=== PATIENT | female | born 1990 | race Asian ===

== ENCOUNTER 2016-08-05 12:24 | Emergency (ER) | payer SELFPAY ==
[~2016-08-05] VITALS: Ht 160 cm; Wt 62.6 kg
[2016-08-05 13:00] LABS: KETONES,URINE NEGATIVE (NEGATIVE); LEUKOCYTE ESTERASE ,URINE 1+ (NEGATIVE); NITRITE,URINE NEGATIVE (NEGATIVE); PH,URINE 6 (4.5-8.0); PROTEIN,URINE 1+ (NEGATIVE); UROBILINOGEN,URINE 1 MG/DL (0.0-1.0)
[2016-08-05 13:02] LABS: APPEARANCE,URINE SLIGHTLY CLOUDY
[2016-08-05 13:05] LABS: BACTERIA,URINE MODERATE /HPF; ICTOTEST NEGATIVE; SQUAMOUS EPITHELIAL CELL,UR MODERATE /LPF (NONE/OCC)
--- NOTE | 2016-08-05 13:33 | Emergency Room Report ---
History of Present Illness General Chief Complaint: Vaginal Source: Patient Present Illness HPI 25-year-old female presents emergency department complaining of yellow vaginal discharge with fishy odor times one week. Patient states she to [facility] over-[facility]- [facility] with no relief. Patient also reports some residual spotting from her period from last week. Patient reports dark red blood. Patient denies recent unprotected intercourse. Patient denies nausea vomiting fevers chills abdominal pain, dysuria, frequency, external vaginal lesions, rashes, . Denies CP, Palpitations, LOC, AMS, dizziness, Changes in Vision, Sensation, paresthesias, or a sudden severe headache. Allergies: Coded Allergies: AMOXICILLIN (Verified Allergy, Unknown, 08/05/16) Patient History Past Medical History: see triage record Past Surgical History: none Pertinent Family History: none Last Menstrual Period: 07/24/2016 Now: No Immunizations: UTD Reviewed Nursing Documentation: PMH: Agreed, PSxH: Agreed Nursing Documentation-PMH Past Medical History: No History, Except For Hx Asthma: Yes Review of Systems All Other Systems: negative except mentioned in HPI Physical Exam Vital Signs Date Time Temp Pulse Resp B/P Pulse Ox O2 Delivery O2 Flow Rate FiO2 08/05/16 12:38 98.2 84 16 113/68 99 Room Air Sp02 EP Interpretation: reviewed, normal General Appearance: no apparent distress, alert, GCS 15, non-toxic Head: normocephalic, atraumatic Eyes: bilateral eye PERRL, bilateral eye normal inspection ENT: hearing grossly normal, normal pharynx, no angioedema, normal voice Neck: full range of motion, supple/symm/no masses Respiratory: lungs clear, normal breath sounds, speaking full sentences Cardiovascular #1: regular rate, rhythm, no edema Gastrointestinal: normal bowel sounds, non tender, soft, no guarding, no rebound Rectal: deferred Genitourinary: normal inspection, no CVA tenderness, adnexa normal, cervix normal, os closed, other - yellow-white vaginal d/c scant dark red blood, negative CMT, Musculoskeletal: back normal, gait/station normal, normal range of motion, non- tender Neurologic: alert, oriented x3, responsive, motor strength/tone normal, sensory intact, speech normal Psychiatric: judgement/insight normal, memory normal, mood/affect normal Skin: normal color, no rash, warm/dry, well hydrated Lymphatic: no adenopathy Medical Decision Making PA Attestation Dr. Damon is my supervising Physician whom patient management has been discussed with. Diagnostic Impression: Primary Impression: Urinary tract infection Qualified Codes: N30.01 - Acute cystitis with hematuria Additional Impression: Bacterial vaginosis ER Course 25-year-old female presents emergency department complaining of yellow vaginal discharge with fishy odor times one week. Patient states she to [facility] over-[facility]- counter with no relief. Patient also reports some residual spotting from her period from last week. Patient reports dark red blood. Patient denies recent unprotected intercourse. Patient denies nausea vomiting fevers chills abdominal pain, dysuria, frequency, external vaginal lesions, rashes, . Ddx considered but are not limited to UTi , STI, G & C, trichomonas, Vaginitis , cervicitis, BV. Vital signs: are WNL, pt. is afebrile H&PE are most consistent with BV ORDERS: - UA: moderate bacteria and wbc's -Urine HCG: Negative -WET MOUNT: bacteria, no trich, epithelial cells. - no comment on clue cells, will treat clinically due to strong fish-like odor of d/c -Urine G & C culture: Pending ED INTERVENTIONS: - DISCHARGE: At this time pt. is stable for d/c to home. Will provide printed patient care instructions, and any necessary prescriptions. Care plan and follow up instructions have been discussed with the patient prior to discharge. Labs Test 08/05/16 12:55 Urine Color [place] Urine Appearance Slightly cloudy Urine pH 6 (4.5-8.0) Urine Specific [place] 1.025 (1.005-1.035) Urine Protein 1+ (NEGATIVE) Urine Glucose (UA) Negative (NEGATIVE) Urine Ketones Negative (NEGATIVE) Urine Occult Blood 4+ (NEGATIVE) Urine Nitrite Negative (NEGATIVE) Urine Bilirubin Negative (NEGATIVE) Urine Ictotest Negative Urine Urobilinogen 1 MG/DL (0.0-1.0) Urine Leukocyte Esterase 1+ (NEGATIVE) Urine RBC 10-15 /HPF (0 - 2) Urine WBC 5-10 /HPF (0 - 2) Urine Squamous Epithelial Cells Moderate /LPF (NONE/OCC) Urine Bacteria Moderate /HPF (NONE) Urine HCG, Qualitative Negative Last Vital Signs Date Time Temp Pulse Resp B/P Pulse Ox O2 Delivery O2 Flow Rate FiO2 08/05/16 12:38 98.2 84 16 113/68 99 Room Air Disposition: HOME, SELF-CARE Condition: Stable Scripts Nitrofurantoin Monohyd/M-Cryst* (MACROBID 100 MG*) 100 Mg Capsule 100 MG ORAL EVERY 12 HOURS for 5 Days, #10 CAP Prov: Nkechi Grewal 08/05/16 Metronidazole* (FLAGYL*) 500 Mg Tablet 500 MG ORAL BID for 7 Days, #14 TAB 0 Refills Prov: Nkechi Grewal 08/05/16 Referrals: NOT CHOSEN [facility]/,REFERRING (PCP) Patient Instructions: Urinary Tract Infection, [id number] Additional Instructions: Take medications as directed. Follow up with PCP in 3-5 days Return sooner to ED if new symptoms occur, or current symptoms become worse. Do not drink alcohol while taking FLAGYL/METRONIDAZOLE as this will cause a moderate skin reaction. - Please note that this Emergency Department Report was dictated using [employer] machine tender technology software, occasionally this can lead to erroneous entry secondary to interpretation by the dictation equipment. Nkechi Grewal Aug 05, 2016 13:33
[2016-08-05] MEDS ORDERED: METRONIDAZOLE500 MG ORAL (14:01)
[2016-08-05] MEDS ORDERED: NITROFURANTOIN100 M2 ORAL (14:01)
[2016-08-05 14:10] VITALS: BP 123/87
== END 2016-08-05 14:15 | disposition home or self-care (01) ==
LOC: EMR 13:12
DX: N39.0 Urinary tract infection, site not specified (principal); N76.0 Acute vaginitis; Z88.1 Allergy status to other antibiotic agents; J45.909 Unspecified asthma, uncomplicated
CPT/HCPCS: 81003; 81025; 87086; 87210; 87491; 87590; 99284

== ENCOUNTER 2018-01-27 18:52 | Emergency (ER) | payer SELFPAY ==
[~2018-01-27] VITALS: Ht 160 cm; Wt 68.0 kg
[~2018-01-27 18:52] MED LIST: METRONIDAZOLE500 MG ORAL; NITROFURANTOIN100 M2 ORAL
[2018-01-27 19:10] VITALS: BP 117/79
[2018-01-27 20:02] LABS: APPEARANCE,URINE CLEAR; BILIRUBIN, URINE NEGATIVE (NEGATIVE); COLOR,URINE PALE YELLOW; GLUCOSE, URINE (UA) NEGATIVE (NEGATIVE); KETONES,URINE NEGATIVE (NEGATIVE); LEUKOCYTE ESTERASE ,URINE 1+ (NEGATIVE); NITRITE,URINE NEGATIVE (NEGATIVE); PH,URINE 8 (4.5-8.0); PROTEIN,URINE NEGATIVE (NEGATIVE); UROBILINOGEN,URINE 1 MG/DL (0.0-1.0)
--- NOTE | 2018-01-27 20:07 | Emergency Room Report ---
History of Present Illness General Chief Complaint: Female Urogenital Problems Source: Patient Present Illness HPI 27-year-old female presents to the emergency department complaining of out of 10 in severity malodorous vaginal discharge off and on since September. Patient denies fevers or chills. Patient denies abnormal vaginal bleeding or current . Patient denies fevers or chills she reports some urinary frequency. Patient denies recent antibiotic use. Patient reports some unprotected intercourse with monogamous partner and states that she does not have suspicion for STDs at this time. Denies rashes, swollen tender lymph nodes, joint pain, nausea vomiting or external genital lesions. Allergies: Coded Allergies: AMOXICILLIN (Verified Allergy, Unknown, 08/05/16) Patient History Past Medical History: see triage record Past Surgical History: none Pertinent Family History: none Last Menstrual Period: 01/20/18 Now: No Reviewed Nursing Documentation: PMH: Agreed; PSxH: Agreed Nursing Documentation-PMH Hx Asthma: Yes Review of Systems All Other Systems: negative except mentioned in HPI Physical Exam Vital Signs Date Time Temp Pulse Resp B/P (MAP) Pulse Ox O2 Delivery O2 Flow Rate FiO2 01/27/18 19:00 99.0 91 16 119/80 99 Room Air 99.0 Sp02 EP Interpretation: reviewed, normal General Appearance: no apparent distress, alert, GCS 15, non-toxic Head: normocephalic, atraumatic Eyes: bilateral eye normal inspection, bilateral eye PERRL ENT: hearing grossly normal, normal voice Neck: full range of motion Respiratory: lungs clear, normal breath sounds, speaking full sentences Cardiovascular #1: regular rate, rhythm Gastrointestinal: normal bowel sounds, non tender, soft Genitourinary: normal inspection, no CVA tenderness, adnexa normal, ext genitalia/vag normal, other - cervix was noted to have abnormal appearance were several hypopigmented areas that were part of the epithelia. Patient also noted to have what looked like a small abrasion across the 9 o'clock position of the cervi,, some milky white vaginal d/c present in the vaginal vault, no CMT. Musculoskeletal: back normal, gait/station normal, normal range of motion, non- tender Neurologic: alert, oriented x3, responsive, motor strength/tone normal, sensory intact, speech normal, grossly normal Psychiatric: judgement/insight normal Skin: normal color, no rash, warm/dry, well hydrated Lymphatic: no adenopathy Medical Decision Making PA Attestation Dr. becerra is my supervising Physician whom patient management has been discussed with. Diagnostic Impression: Primary Impression: Bacterial vaginosis ER Course 27-year-old female presents to the emergency department complaining of out of 10 in severity malodorous vaginal discharge off and on since September. Patient denies fevers or chills. Patient denies abnormal vaginal bleeding or current . Patient denies fevers or chills she reports some urinary frequency. Patient denies recent antibiotic use. Patient reports some unprotected intercourse with monogamous partner and states that she does not have suspicion for STDs at this time. Denies rashes, swollen tender lymph nodes, joint pain, nausea vomiting or external genital lesions. Ddx considered but are not limited to UTi , Pyelo, STI, Stone, Cystitis, vaginal laceration, vaginitis. Vital signs: are WNL, pt. is afebrile H& PE are most consistent with: Vaginitis --Upon pelvic exam cervix was noted to have abnormal appearance were several hypopigmented areas that were part of the epithelia. Patient also noted to have what looked like a small abrasion across the 9 o'clock position of the cervix. Discussed with patient that I highly recommend [facility] follow-up with a Pap smear patient verbalizes her understanding and agreement she states that her previous Pap smears have been normal however she is due to have one. Denies familial history of cervical cancer denies night sweats or significant changes in weight. ORDERS: - UA labs are attached : unremarkable- Most indicative of contamination: presence of equal amounts of bacteria and squamous cells, no elevation in inflammatory markers, nitrite negative. - Wet Mount : few clue cells. ED INTERVENTIONS: -Pt. given instructions to follow up and have pap-smear due to abnormal appearance of cervix. D/w pt. that the appearance is suspicious for early stages of cervical cancer. Pt. reports she has not been told about an abnormal appearance in the past. d/w pt that OBGYN and oncology is not my specialty, however an abnormal appearance can be retention representative of malignancy and proper evaluation is required. DISCHARGE: At this time pt. is stable for d/c to home. Will provide printed patient care instructions, and any necessary prescriptions. Care plan and follow up instructions have been discussed with the patient prior to discharge. discussed with the patient prior to discharge. Labs Test 01/27/18 19:08 Urine Color Pale yellow Urine Appearance Clear Urine pH 8 (4.5-8.0) Urine Specific [place] 1.010 (1.005-1.035) Urine Protein Negative (NEGATIVE) Urine Glucose (UA) Negative (NEGATIVE) Urine Ketones Negative (NEGATIVE) Urine Blood Negative (NEGATIVE) Urine Nitrite Negative (NEGATIVE) Urine Bilirubin Negative (NEGATIVE) Urine Urobilinogen 1 MG/DL (0.0-1.0) Urine Leukocyte Esterase 1+ (NEGATIVE) Last Vital Signs Date Time Temp Pulse Resp B/P (MAP) Pulse Ox O2 Delivery O2 Flow Rate FiO2 01/27/18 19:10 99.1 78 16 117/79 99 Room Air 99.1 Disposition: HOME, SELF-CARE Condition: Stable Scripts Metronidazole* (FLAGYL*) 500 Mg Tablet 500 MG ORAL BID for 5 Days, #10 TAB 0 Refills Prov: Nkechi Grewal 01/27/18 Referrals: NOT CHOSEN [facility],REFERRING (PCP) Patient Instructions: Bacterial Vaginosis, [id number] Additional Instructions: Take medications as directed. ! Do not drink alcohol while taking Flagyl/Metronidazole as this will cause a skin reaction. Follow up with a Primary Care Provider in 3-5 days, even if your symptoms have resolved. --Please review list of primary care clinics, if you do not already have a primary care provider Follow up with OBGYN or PCP for PAP- Smear and to evaluate your abnormal cervical appearance Return sooner to ED if new symptoms occur, or current symptoms become worse. - Please note that this Emergency Department Report was dictated using [employer] tender technology software, occasionally this can lead to erroneous entry secondary to interpretation by the dictation equipment. Nkechi Grewal Jan 27, 2018 20:07
[2018-01-27] MEDS ORDERED: METRONIDAZOLE500 MG ORAL (20:09)
[2018-01-27 20:20] VITALS: BP 114/73
== END 2018-01-27 20:20 | disposition home or self-care (01) ==
LOC: EMR 19:14
DX: N76.0 Acute vaginitis (principal); B96.89 Other specified bacterial agents as the cause of diseases classified elsewhere; J45.909 Unspecified asthma, uncomplicated
CPT/HCPCS: 81003; 87210; 99283

== ENCOUNTER 2018-04-09 17:16 | Emergency (ER) | payer MEDICAID ==
[~2018-04-09] VITALS: Ht 160 cm; Wt 63.5 kg
[2018-04-09] MEDS ORDERED: NKM (17:23)
--- NOTE | 2018-04-09 17:57 | Emergency Room Report ---
History of Present Illness General Chief Complaint: Female Urogenital Problems Source: Patient Present Illness HPI 27-year-old female presents to the emergency department complaining of vaginal discharge with cramping sensations 5 days. Patient also states that she began having loose bowel movements one per day for the last 3 days. Patient denies nausea vomiting, blood in the stool or dark tarry stools, , suspicion for STI, urinary urgency, urinary frequency, hematuria or dysuria. She describes a milky discharge that has an odor to it. She denies bleeding, external genital lesions or rashes. The patient denies dyspareunia, or abdominal tenderness. Allergies: Coded Allergies: AMOXICILLIN (Verified Allergy, Unknown, 08/05/16) Patient History Past Medical History: see triage record Past Surgical History: none Pertinent Family History: none Last Menstrual Period: 03/24/18 Now: No Reviewed Nursing Documentation: PMH: Agreed; PSxH: Agreed Nursing Documentation-PMH Past Medical History: No History, Except For Hx Asthma: Yes Review of Systems All Other Systems: negative except mentioned in HPI Physical Exam Vital Signs Date Time Temp Pulse Resp B/P (MAP) Pulse Ox O2 Delivery O2 Flow Rate FiO2 04/09/18 17:18 98.4 100 17 126/76 99 Room Air Sp02 EP Interpretation: reviewed, normal General Appearance: no apparent distress, alert, GCS 15, non-toxic Head: normocephalic, atraumatic Eyes: bilateral eye normal inspection, bilateral eye PERRL ENT: hearing grossly normal, normal voice Neck: full range of motion Respiratory: lungs clear, normal breath sounds, speaking full sentences Cardiovascular #1: regular rate, rhythm Gastrointestinal: normal bowel sounds, non tender, soft, non-distended, no guarding Rectal: deferred Genitourinary: normal inspection, no CVA tenderness, adnexa normal, cervix normal, ext genitalia/vag normal, other - milky white d/c noted, no CMT Musculoskeletal: back normal, gait/station normal, normal range of motion, non- tender Neurologic: alert, oriented x3, responsive, motor strength/tone normal, sensory intact, speech normal, grossly normal Psychiatric: judgement/insight normal Skin: normal color, no rash, warm/dry, well hydrated Lymphatic: no adenopathy Medical Decision Making PA Attestation Dr. Contreras is my supervising Physician whom patient management has been discussed with. Diagnostic Impression: Primary Impression: Vaginitis Qualified Codes: N76.0 - Acute vaginitis ER Course 27-year-old female presents to the emergency department complaining of vaginal discharge with cramping sensations 5 days. Patient also states that she began having loose bowel movements one per day for the last 3 days. Patient denies nausea vomiting, blood in the stool or dark tarry stools, , suspicion for STI, urinary urgency, urinary frequency, hematuria or dysuria. She describes a milky discharge that has an odor to it. She denies bleeding, external genital lesions or rashes. The patient denies dyspareunia, or abdominal tenderness. Pt. presents to the ED c/o vaginal irritation/ discomfort, [ ] x [ ] day(s). Ddx considered but are not limited to UTi , Pyelo, STI, Stone, Cystitis, vaginal laceration, vaginitis. Vital signs: are WNL, pt. is afebrile H& PE are most consistent with: Vaginitis ORDERS: - UA labs are attached - unremarkable - Wet Mount : few WBC's -Hcg: Negative ED INTERVENTIONS: -Diflucan PO DISCHARGE: At this time pt. is stable for d/c to home. Will provide printed patient care instructions, and any necessary prescriptions. Care plan and follow up instructions have been discussed with the patient prior to discharge. discussed with the patient prior to discharge. Labs Test 04/09/18 17:23 Urine Color Yellow Urine Appearance Clear Urine pH 6 (4.5-8.0) Urine Specific [place] 1.020 (1.005-1.035) Urine Protein Negative (NEGATIVE) Urine Glucose (UA) Negative (NEGATIVE) Urine Ketones Negative (NEGATIVE) Urine Blood Negative (NEGATIVE) Urine Nitrite Negative (NEGATIVE) Urine Bilirubin Negative (NEGATIVE) Urine Urobilinogen 4 MG/DL (0.0-1.0) Urine Leukocyte Esterase 1+ (NEGATIVE) Urine RBC 0 /HPF (0 - 2) Urine WBC 2-4 /HPF (0 - 2) Urine Squamous Epithelial Cells Moderate /LPF (NONE/OCC) Urine Bacteria Few /HPF (NONE) Urine HCG, Qualitative Negative (NEGATIVE) Last Vital Signs Date Time Temp Pulse Resp B/P (MAP) Pulse Ox O2 Delivery O2 Flow Rate FiO2 04/09/18 17:18 98.4 100 17 126/76 99 Room Air Disposition: HOME, SELF-CARE Condition: Stable Scripts Fluconazole (FLUCONAZOLE) 100 Mg Tablet 100 MG ORAL DAILY, #3 TAB 0 Refills Prov: Nkechi Grewal 04/09/18 Patient Instructions: Vaginitis Additional Instructions: Take medications as directed. Follow up with a Primary Care Provider in 3-5 days, even if your symptoms have resolved. --Please review list of primary care clinics, if you do not already have a primary care provider Return sooner to ED if new symptoms occur, or current symptoms become worse. - Please note that this Emergency Department Report was dictated using [employer] professional bilingual technology software, occasionally this can lead to erroneous entry secondary to interpretation by the dictation equipment. Nkechi Grewal Apr 09, 2018 17:57
[2018-04-09 18:12] LABS: APPEARANCE,URINE CLEAR; BILIRUBIN, URINE NEGATIVE (NEGATIVE); GLUCOSE, URINE (UA) NEGATIVE (NEGATIVE); KETONES,URINE NEGATIVE (NEGATIVE); LEUKOCYTE ESTERASE ,URINE 1+ (NEGATIVE); NITRITE,URINE NEGATIVE (NEGATIVE); PH,URINE 6 (4.5-8.0); PROTEIN,URINE NEGATIVE (NEGATIVE); UROBILINOGEN,URINE 4 MG/DL (0.0-1.0)
[2018-04-09 18:22] LABS: COLOR,URINE YELLOW
[2018-04-09 18:55] VITALS: BP 122/78
[2018-04-09] MEDS ORDERED: FLUCONAZOLE100 MG ORAL (18:55)
[2018-04-09 19:02] VITALS: BP 122/78
== END 2018-04-09 19:02 | disposition home or self-care (01) ==
LOC: EMR 17:40
DX: N76.0 Acute vaginitis (principal); Z88.0 Allergy status to penicillin
CPT/HCPCS: 81003; 81025; 87210; 99283

== ENCOUNTER 2018-05-13 11:10 | Emergency (ER) | payer MEDICAID ==
[~2018-05-13] VITALS: Ht 160 cm; Wt 63.5 kg
[~2018-05-13 11:10] MED LIST changes: +FLUCONAZOLE100 MG ORAL; +NKM
[2018-05-13 11:14] VITALS: BP 138/84
--- NOTE | 2018-05-13 11:24 | NUR ---
ED Nurse Note: ambulated in to ER due to sorethroat and chest discomfort since 05/10/18 after having panic attack.
--- NOTE | 2018-05-13 12:31 | Emergency Room Report ---
History of Present Illness General Chief Complaint: Sore Throat Source: Patient Present Illness HPI 27-year-old female patient presents the ER with multiple complaints. Patient is reporting having a panic attack several days ago, states after the panic attack she began to have chest pain symptoms for the past several days, states pain symptoms have improved since that time. Reports pain is reproducible. Denies history of SD. Reports history of asthma, requesting refill of medication. Denies shortness of breath symptoms at this time. Speaking in clear full sentences. Also complaining of bacterial vaginosis. Reports foul- smelling odor. Denies materia, dysuria, vaginal discharge. Denies recent sexual activity without protection. Denies fever, abdominal pain, vomiting. Also reports sore throat. Reports symptoms been present for the past few days. States not taking medication for relief of symptoms. Denies other aggravating or relieving factors. Allergies: Coded Allergies: AMOXICILLIN (Verified Allergy, Unknown, 05/13/18) Patient History Past Medical History: see triage record Last Menstrual Period: currently on Reviewed Nursing Documentation: PMH: Agreed; PSxH: Agreed Nursing Documentation-PMH Past Medical History: No History, Except For Hx Asthma: Yes Review of Systems All Other Systems: negative except mentioned in HPI Physical Exam Vital Signs Date Time Temp Pulse Resp B/P (MAP) Pulse Ox O2 Delivery O2 Flow Rate FiO2 05/13/18 11:14 98.6 91 16 138/84 99 Room Air Sp02 EP Interpretation: reviewed, normal General Appearance: well appearing, no apparent distress, alert, GCS 15, non- toxic Head: normocephalic, atraumatic Eyes: bilateral eye normal inspection, bilateral eye PERRL ENT: hearing grossly normal, normal pharynx, no angioedema, normal voice, TMs + canals normal, uvula midline, moist mucus membranes, other - uvula midline Neck: full range of motion, no bony tend Respiratory: lungs clear, normal breath sounds, no rhonchi, no respiratory distress, no accessory muscle use, no wheezing, speaking full sentences, other - Chest tender to palpation, no bony deformity, no flail chest Cardiovascular #1: regular rate, rhythm, no edema Gastrointestinal: non tender, soft, no mass, non-distended, no guarding, no rebound Genitourinary: no CVA tenderness, deferred Musculoskeletal: back normal, digits/nails normal, gait/station normal, normal range of motion, non-tender Neurologic: alert, oriented x3, responsive, motor strength/tone normal, sensory intact Psychiatric: mood/affect normal Skin: no rash Medical Decision Making PA Attestation Dr. Khan is my supervising Physician whom patient management has been discussed with. Diagnostic Impression: Primary Impression: Nonspecific chest pain Additional Impressions: Bacterial vaginosis Sore throat ER Course Pt. presents to the ED c/o chest pain status post panic attack 4 days ago, states pain is resolved, sore throat, bacterial vaginosis concern. Ddx considered but are not limited to SD, costochondritis, muscular skeletal pain, pneumothorax, aortic dissection, BV, pharyngitis, tonsillitis, UTI. Low suspicion for peritonsillar abscess, no neck stiffness, no hot potato voice , no stridor. Vital signs: are WNL, pt. is afebrile ER COURSE: Patient reports foul-smelling odor with urination, denies dysuria or hematuria, low suspicion for UTI we will not order UA, will treat clinically for BV. We will treat with Flagyl, advised patient not to drink alcohol taking medication. On PE, chest is TTP; chest pain likely musculoskeletal in nature secondary to cough, does not require cardiac workup at this time. Patient instructed to take NSAIDs as needed for pain symptoms. EKG shows no ST elevation or A. fib. Chest X-ray negative. Chest xray and EKG unremarkable, patient denies acute complaints at this time, low suspicion for cardiac etiology of symptoms at this time. will provide refill of inhaler, lungs clear to auscultation,no wheezes, rhocni or rales, does not require breathing treatment at this time. followup with PCP for further treatment and referral to cardiology. Salt water gargles and Tylenol for sore throat. ER precautions given. DISCHARGE: At this time pt is stable for d/c to home. Patient is resting comfortably, in no acute distress, nontoxic appearing, talking without difficulty. Patient to take medications as instructed Will provide with patient care instructions and any necessary prescriptions. Care plan and follow-up instructions provided. Patient instructed to follow-up with primary care provider in 3 - 5 days. Patient questions asked and answered. Patient reports understanding and agreement to treatment plan. ER precautions given. Patient instructed to return to ER immediately for any new or worsening of symptoms including but not limited to increasing SOB, persistent fever, chest pain, intractable vomiting. - Please note that this Emergency Department Report was dictated using [employer]eleratedchild [employer] adolescent psychiatrist technology software, occasionally this can lead to erroneous entry secondary to interpretation by the dictation equipment. EKG Diagnostic Results Rate: normal Rhythm: NSR ST Segments: no acute changes ASA given to the pt in ED: No PA Scribe Marycarmen Florence PA-C Rhythm Strip Diag. Results EP Interpretation: yes Rate: 94 Rhythm: NSR, no PVC's, no ectopy PA Scribe Text Pardeep Florence PA-C Chest X-Ray Diagnostic Results Chest X-Ray Diagnostic Results : Chest X-Ray Ordered: Yes # of Views/Limited/Complete: 1 View Indication: Chest Pain EP Interpretation: Yes PA Xray: Interpretation reviewed, by supervising MD, and agrees with findings. Interpretation: no consolidation, no effusion, no pneumothorax, no acute cardiopulmonary disease Impression: No acute disease FAIZAN Scribe Marycarmen Florence PA-C Last Vital Signs Date Time Temp Pulse Resp B/P (MAP) Pulse Ox O2 Delivery O2 Flow Rate FiO2 05/13/18 11:14 98.6 16 138/84 99 Room Air 05/13/18 11:14 91 Disposition: HOME, SELF-CARE Condition: Stable Scripts Metronidazole* (FLAGYL*) 500 Mg Tablet 500 MG ORAL BID, #14 TAB Prov: Italo Florence 05/13/18 Albuterol Sulfate* (ALBUTEROL SULFATE MDI*) 8.5 Gm Hfa.aer.ad 2 PUFF INH Q6H, #1 INH 0 Refills Prov: Italo Florence 05/13/18 Ibuprofen* (MOTRIN*) 600 Mg Tablet 600 MG ORAL Q8H PRN for For Pain, #30 TAB 0 Refills Prov: Italo Florence 05/13/18 Referrals: NOT CHOSEN IPA/,REFERRING (PCP) Patient Instructions: Bacterial Vaginosis, [id number], Costochondritis, Easy- to-Read, Nonspecific Chest Pain, [id number], Sore Throat Additional Instructions: Followup with primary care provider in 3 -5 days. Discuss referral to assurance associate for cardiac stress testing and further workup as needed. Drink plenty fluids. Take medications as directed. Do not drink alcohol while taking Flagyl. Patient questions asked and answered. ER precautions given, patient instructed to return to ER immediately for any new or worsening of symptoms. Italo Florence May 13, 2018 12:31
[2018-05-13] MEDS ORDERED: ALBUTEROL SULF8.5 GM INH (12:43)
[2018-05-13] MEDS ORDERED: FLAGYL500 MG ORAL (12:43)
[2018-05-13] MEDS ORDERED: IBUPROFEN600 MG ORAL (12:43)
[2018-05-13 12:47] VITALS: BP 135/70
--- NOTE | 2018-05-13 12:47 | NUR ---
ED Nurse Note: Pt cleared by HealthCare provider for discharge. ACI/prescription given and explained to pt and verbalized understanding of teachings provided. All medical devices such as ID band removed. Pt is AAO x4, ambulatory and left with all personal belongings.
--- NOTE | 2018-05-13 13:05 | Diagnostic Imaging Report ---
Indication: Dyspnea Comparison: None A single view chest radiograph was obtained. Findings: Cardiomediastinal appearance is within normal limits for age. The lungs are clear. Pulmonary vascularity is appropriate. The diaphragmatic contour is smooth and costophrenic angles are sharp. No pleural effusions are identified. The bones are unremarkable. Impression: No acute findings
--- NOTE | 2018-05-14 13:46 | Cardiology Report ---
APPROVED REPORT EKG Measurement Heart [id number] Normal sinus rhythm with sinus arrhythmia Normal ECG
== END 2018-05-13 12:47 | disposition home or self-care (01) ==
LOC: EMR 11:45
DX: R07.9 Chest pain, unspecified (principal); N76.0 Acute vaginitis; B96.89 Other specified bacterial agents as the cause of diseases classified elsewhere; J02.9 Acute pharyngitis, unspecified; J45.909 Unspecified asthma, uncomplicated; Z88.0 Allergy status to penicillin
CPT/HCPCS: 71045; 93005; 99283

== ENCOUNTER 2018-05-22 19:37 | Emergency (ER) | payer MEDICAID ==
[~2018-05-22] VITALS: Ht 160 cm; Wt 63.5 kg
[~2018-05-22 19:37] MED LIST changes: +ALBUTEROL SULF8.5 GM INH; +FLAGYL500 MG ORAL; +IBUPROFEN600 MG ORAL
[2018-05-22 20:21] VITALS: BP 139/95
--- NOTE | 2018-05-22 20:25 | NUR ---
ED Nurse Note: Pt is having panic attack since this morning. Pt states she was drinking all night long last night. Pt admit she use Marijuana at 2pm. upon physical exam, pt vital signs are within define limits. pt is alert and oritented times 4. pt is able to ambulate with steady gait.
--- NOTE | 2018-05-22 20:25 | Emergency Room Report ---
History of Present Illness General Chief Complaint: General Complaint Source: Patient Present Illness HPI 27-year-old female presenting anxiety. Says that she had 3 panic attacks a day. Says that she is stressed. She says that it has happened before, presenting with palpitations as well as chest tightness. It resolved upon coming to the emergency room but says that she still feels tingling in her bilateral fingers. She does say that she smokes marijuana for pain control. Allergies: Coded Allergies: AMOXICILLIN (Verified Allergy, Unknown, 05/13/18) Patient History Past Medical History: see triage record Past Surgical History: none Pertinent Family History: none Reviewed Nursing Documentation: PMH: Agreed; PSxH: Agreed Nursing Documentation-PMH Hx Asthma: Yes History Of Psychiatric Problem: Yes - Anxiety, Panic attack Review of Systems All Other Systems: negative except mentioned in HPI Physical Exam Vital Signs Date Time Temp Pulse Resp B/P (MAP) Pulse Ox O2 Delivery O2 Flow Rate FiO2 05/22/18 20:07 98.2 94 18 143/96 95 Room Air Sp02 EP Interpretation: reviewed, normal General Appearance: alert, GCS 15, non-toxic, mild distress Head: normocephalic, atraumatic Eyes: bilateral eye normal inspection, bilateral eye PERRL, bilateral eye EOMI ENT: normal ENT inspection, normal pharynx, normal voice, moist mucus membranes Neck: normal inspection, full range of motion, supple Respiratory: normal inspection, lungs clear, normal breath sounds, no respiratory distress, no retraction, no wheezing, speaking full sentences, chest symmetrical Cardiovascular #1: normal inspection, regular rate, rhythm, normal capillary refill Cardiovascular #2: 2+ radial (R), 2+ radial (L) Gastrointestinal: normal inspection, non tender, soft, non-distended, no guarding Musculoskeletal: normal inspection, back normal, normal range of motion, non- tender Neurologic: normal inspection, alert, oriented x3, responsive, motor strength/ tone normal, sensory intact, normal gait, speech normal Psychiatric: anxious Skin: normal inspection, normal color, no rash, warm/dry, well hydrated, normal turgor Medical Decision Making Diagnostic Impression: Primary Impression: Anxiety ER Course 27-year-old female presenting with anxiety DDX: Anxiety versus also induced with drug use/marijuana Plan: Ativan by mouth ER course: Patient has remained stable during ED stay. Feeling much better. No SI no HI. Disposition: Patient is to be discharged to home. She is told to seek counseling/mental health services. Also follow-up with PCP Please note that this Emergency Department Report was dictated using [employer] fabricator welder technology software, occasionally this can lead to erroneous entry secondary to interpretation by the dictation equipment Last Vital Signs Date Time Temp Pulse Resp B/P (MAP) Pulse Ox O2 Delivery O2 Flow Rate FiO2 05/22/18 20:07 98.2 94 18 143/96 95 Room Air Disposition: HOME, SELF-CARE Condition: Stable Falguni Aguillon M.D. May 22, 2018 20:25
[2018-05-22] MEDS ORDERED: LORazepam 1mg tab ORAL ONE (20:30)
[2018-05-22 21:10] VITALS: BP 130/96
--- NOTE | 2018-05-22 21:11 | NUR ---
ED Nurse Note: Pt cleared by Health Care Provider for discharge. DC instructions/prescriptions given and explained to pt and verbalized understanding of teachings. All medical devices such as ID band removed. Pt AAO x4, ambulatory and left with all personal belongings. pt is instructed to follow up with primary MD as soon as possible. pt is insturcted to return and seek medical attention if reoccurance of symptoms. pt has left with all DC notes and has been able to teach back all instructions.
== END 2018-05-22 21:20 | disposition home or self-care (01) ==
LOC: EMR 20:48
DX: F41.0 Panic disorder [episodic paroxysmal anxiety] (principal); F12.90 Cannabis use, unspecified, uncomplicated; Z88.1 Allergy status to other antibiotic agents; F17.200 Nicotine dependence, unspecified, uncomplicated; J45.909 Unspecified asthma, uncomplicated
CPT/HCPCS: 99282

== ENCOUNTER 2018-06-21 15:27 | Emergency (ER) | payer MEDICAID, OTHER ==
[~2018-06-21] VITALS: Ht 160 cm; Wt 61.2 kg
--- NOTE | 2018-06-21 15:46 | NUR ---
ED Nurse Note: PT WALKED IN TO ER TODAY FROM HOME. AOX4. PT C/O PERSISTENT, NONPRODUCTIVE COUGH X 2 WEEKS. PT DENIES FEVER, NAUSEA, OR VOMITING. NO SIGNS OF RESPIRATORY DISTRESS OR RETRACTIONS NOTED. RR16 @ 100% O2 SATURATION ON RA. LUNG SOUNDS CLEAR IN ALL LOBES.
[2018-06-21 15:47] VITALS: BP 126/80
--- NOTE | 2018-06-21 15:55 | NUR ---
ED Nurse Note: XRAY AT BEDSIDE
--- NOTE | 2018-06-21 16:01 | Emergency Room Report ---
History of Present Illness General Chief Complaint: Upper Respiratory Illness Source: Patient Present Illness HPI Patient presents emergency department today complaining cough congestion for the last 2 weeks. Patient states that she has sinus tenderness in a sinus headache. It did improve after using some Benadryl. She continues have a cough however. Denies any sputum production. Denies any fever or chills chest pain shortness of breath. Denies any leg pain leg swelling. Patient has a history anxiety and feels very anxious about this. Patient is requesting a chest x-ray.No other modifying factors. No other associated signs and symptoms. No other complaints were noted. Allergies: Coded Allergies: AMOXICILLIN (Verified Allergy, Unknown, 05/13/18) Patient History Past Medical History: asthma, psych hx - Anxiety Past Surgical History: none Pertinent Family History: none Social History: Reports: alcohol use, drug use - Marijuana use; Denies: smoking Last Menstrual Period: 06/11/2018 Reviewed Nursing Documentation: PMH: Agreed; PSxH: Agreed Nursing Documentation-PMH Past Medical History: No History, Except For Hx Asthma: Yes Review of Systems All Other Systems: negative except mentioned in HPI Physical Exam Vital Signs Date Time Temp Pulse Resp B/P (MAP) Pulse Ox O2 Delivery O2 Flow Rate FiO2 06/21/18 15:39 98.1 84 16 128/85 99 Room Air Sp02 EP Interpretation: reviewed, normal General Appearance: normal inspection, well appearing, no apparent distress, alert Head: atraumatic Eyes: bilateral eye normal inspection ENT: normal ENT inspection, hearing grossly normal, normal voice Neck: normal inspection, full range of motion, supple, no bony tend Respiratory: normal inspection, lungs clear, normal breath sounds, no respiratory distress, no retraction, no wheezing Cardiovascular #1: regular rate, rhythm, no edema Gastrointestinal: normal inspection, normal bowel sounds, non tender, soft, no guarding, no hernia Genitourinary: no CVA tenderness Musculoskeletal: normal inspection, back normal, normal range of motion Neurologic: normal inspection, alert, responsive, speech normal Psychiatric: normal inspection, judgement/insight normal, mood/affect normal Skin: normal inspection, normal color, no rash Medical Decision Making Diagnostic Impression: Primary Impression: Cough Additional Impression: Sinusitis ER Course Patient present to the Emergency Department today complaining of cough and congestion. Differential considerations include pneumonia bronchitis, asthma, COPD just to name a few.Patient exam is fairly benign. Chest x-ray is normal. Symptoms could be secondary to either bronchitis or sinusitis. Patient has had sinus pain and sinus drainage for 2 weeks. I felt that was reasonable start antibiotics as patient could have infectious sinusitis. We'll provide prescription for Zithromax as patient is allergic to amoxicillin.. Patient was also given the inhaler.Patient is advised to follow up with primary doctor in 2- 3 days and return the emergency room for any worsening symptoms and as needed. Chest X-Ray Diagnostic Results Chest X-Ray Diagnostic Results : Chest X-Ray Ordered: Yes # of Views/Limited/Complete: 1 View Indication: Shortness of Breath EP Interpretation: No Impression: No acute disease Last Vital Signs Date Time Temp Pulse Resp B/P (MAP) Pulse Ox O2 Delivery O2 Flow Rate FiO2 06/21/18 15:47 80 16 Room Air 06/21/18 15:47 98.4 126/80 100 Status: improved Disposition: HOME, SELF-CARE Condition: Stable Scripts Azithromycin* (ZITHROMAX*) 250 Mg Tablet 250 MG ORAL DAILY, #6 TAB 0 Refills Take two tables once daily for 1 day, then one tablet once daily for 4 days. Prov: Enrique Cortes MD 06/21/18 Albuterol Sulfate* (ALBUTEROL SULFATE MDI*) 8.5 Gm Hfa.aer.ad 2 PUFF INH Q4H PRN for cough/wheezing, #1 EA 0 Refills Prov: Enrique Cortes MD 06/21/18 Enrique Cortes MD Jun 21, 2018 16:01
--- NOTE | 2018-06-21 16:06 | Diagnostic Imaging Report ---
Indication: Cough Technique: One view of the chest Comparison: 05/13/2018 Findings: Lungs and pleural spaces are clear. Heart size is normal. No significant interim change Impression: No acute process
[2018-06-21] MEDS ORDERED: ALBUTEROL SULF8.5 GM INH (16:18)
[2018-06-21] MEDS ORDERED: ZITHROMAX250 MG ORAL (16:18)
--- NOTE | 2018-06-21 16:25 | NUR ---
ED Nurse Note: PT SITTING PEACEFULLY IN BED IN NAD. AOX4. PRESCRIPTIONS AND DISCHARGE PAPERWORK EXPLAINED TO PT. PT VERBALIZES UNDERSTANDING AND ALL QUESTIONS ANSWERED. PRESCRIPTIONS AND DISCHARGE PAPERWORK GIVEN TO PT AND ID WRISTBAND REMOVED. PT WALKED OUT OF ER WITH STEADY GAIT AND ALL BELONGINGS.
[2018-06-21 16:40] VITALS: BP 124/76
== END 2018-06-21 16:25 | disposition home or self-care (01) ==
LOC: EMR 16:00
DX: R05 Cough (principal); J32.9 Chronic sinusitis, unspecified; J45.909 Unspecified asthma, uncomplicated; Z88.0 Allergy status to penicillin
CPT/HCPCS: 71045; 99283

== ENCOUNTER 2018-07-22 11:02 | Emergency (ER) | payer OTHER ==
[~2018-07-22] VITALS: Ht 160 cm; Wt 61.2 kg
[~2018-07-22 11:02] MED LIST changes: +ZITHROMAX250 MG ORAL
[2018-07-22 11:10] VITALS: BP 131/90
--- NOTE | 2018-07-22 11:12 | NUR ---
ED Nurse Note: pt walked in to ED due to painful cough, chest congestion, and runny nose for 2 days. no fever or chills reported. wheezing audiable. maintained >94% of pulse oximetry in RA. respirations even and non-labored noted. AAO x4. skin warm to touch. no open wound noted. will wait for the further order.
--- NOTE | 2018-07-22 12:02 | Diagnostic Imaging Report ---
Indication: Cough Technique: One view of the chest Comparison: 06/21/2018 Findings: Lungs and pleural spaces are clear. Heart size is normal. No significant interim change Impression: No acute process
[2018-07-22] MEDS ORDERED: PROMETHAZINE-C118 M1 ORAL (12:07)
[2018-07-22] MEDS ORDERED: ZITHROMAX250 MG ORAL (12:07)
--- NOTE | 2018-07-22 12:15 | NUR ---
ER DISCHARGE NOTE: Patient is cleared to be discharged per ERMD Dr Cortes, pt is aox4, on room air, with stable vital signs. pt was given dc and prescription instructions, pt was able to verbalize understanding, pt id band removed without complications. pt is able to ambulate with steady gait. pt took all belongings.
[2018-07-22 12:16] VITALS: BP 130/87
--- NOTE | 2018-07-22 12:32 | Emergency Room Report ---
History of Present Illness General Chief Complaint: Upper Respiratory Illness Source: Patient Present Illness HPI Patient presents emergency department today complaint cough congestion and sore throat. Patient states symptoms haven't gone for couple days. Patient complains of some occasional shortness breath but she does have an inhaler at home. State that is helping a little bit. Patient denies any fever nausea vomiting or chills. Symptoms noted to be moderate.No other modifying factors. No other associated signs and symptoms. No other complaints were noted. Allergies: Coded Allergies: AMOXICILLIN (Verified Allergy, Unknown, 05/13/18) Patient History Past Medical History: asthma Past Surgical History: none Pertinent Family History: none Social History: Denies: smoking, alcohol use, drug use Last Menstrual Period: 07/08/18 Reviewed Nursing Documentation: PMH: Agreed; PSxH: Agreed Nursing Documentation-PMH Past Medical History: No History, Except For Hx Asthma: Yes Review of Systems All Other Systems: negative except mentioned in HPI Physical Exam Vital Signs Date Time Temp Pulse Resp B/P (MAP) Pulse Ox O2 Delivery O2 Flow Rate FiO2 07/22/18 11:05 99.1 90 18 131/90 98 Room Air Sp02 EP Interpretation: reviewed, normal General Appearance: normal inspection, well appearing, no apparent distress, alert Head: atraumatic Eyes: bilateral eye normal inspection ENT: normal ENT inspection, hearing grossly normal, normal voice Neck: normal inspection, full range of motion, supple, no bony tend Respiratory: normal inspection, lungs clear, normal breath sounds, no respiratory distress, no retraction, no wheezing Cardiovascular #1: regular rate, rhythm, no edema Gastrointestinal: normal inspection, normal bowel sounds, non tender, soft, no guarding, no hernia Genitourinary: no CVA tenderness Musculoskeletal: normal inspection, back normal, normal range of motion Neurologic: normal inspection, alert, responsive, speech normal Psychiatric: normal inspection, judgement/insight normal, mood/affect normal Skin: normal inspection, normal color, no rash Medical Decision Making Diagnostic Impression: Primary Impression: Cough ER Course Patient presents emergency department today complaint cough congestion. Difficult considerations include pneumonia, bronchitis, asthma, allergic reaction, seasonal allergies just to name a few. Patient's exam is fairly benign but given the cough I felt x-rays was indicated. X-ray was noted to be negative by radiology. Given patient's negative x-ray I did recommend patient used inhaler and cough syrup. At patient's insistence I provided her with a prescription for antibiotics. However I advised that she did not take the antibiotics for at least 3 days. If she should get fevers or worsening symptoms and to take and time. Patient voiced understanding.Patient is advised to follow up with primary doctor in 2-3 days and return the emergency room for any worsening symptoms and as needed. Chest X-Ray Diagnostic Results Chest X-Ray Diagnostic Results : Chest X-Ray Ordered: Yes Indication: Shortness of Breath EP Interpretation: No Impression: No acute disease Last Vital Signs Date Time Temp Pulse Resp B/P (MAP) Pulse Ox O2 Delivery O2 Flow Rate FiO2 07/22/18 12:16 98.9 92 19 130/87 99 Room Air Disposition: HOME, SELF-CARE Condition: Stable Scripts Codeine/Promethazine Hcl* (PROMETHAZINE-CODEINE SYRUP*) 118 Ml Syrup 5 ML ORAL Q4H PRN for For Cough for 5 Days, ML 0 Refills Prov: Enrique Cortes MD 07/22/18 Azithromycin* (ZITHROMAX*) 250 Mg Tablet 250 MG ORAL DAILY, #6 TAB 0 Refills Take two tables once daily for 1 day, then one tablet once daily for 4 days. Prov: Enrique Cortes MD 07/22/18 Patient Instructions: Upper Respiratory Infection, Adult Enrique Cortes MD Jul 22, 2018 12:32
== END 2018-07-22 12:13 | disposition home or self-care (01) ==
LOC: EMR 11:35
DX: R05 Cough (principal); R07.0 Pain in throat; Z88.0 Allergy status to penicillin
CPT/HCPCS: 71045; 99283

== ENCOUNTER 2019-03-01 11:31 | Emergency (ER) | payer OTHER ==
[~2019-03-01] VITALS: Ht 160 cm; Wt 70.3 kg
[~2019-03-01 11:31] MED LIST changes: +PROMETHAZINE-C118 M1 ORAL
[2019-03-01] MEDS ORDERED: ALBUTEROL2.5 MG/3 M INH (11:41)
[2019-03-01 11:42] VITALS: BP 124/82
--- NOTE | 2019-03-01 12:27 | Emergency Room Report ---
History of Present Illness General Chief Complaint: Upper Respiratory Illness Source: Patient Present Illness HPI Patient is a 28-year-old female presents after increased cough. Patient states that she had been having increased cough with greenish sputum. This had been present for several days. She denies any fever. She reports having some recent increase in left-sided shoulder pain. She had not been vomiting. She denies any diarrhea. Pain of the shoulder was worsened with movement. She states this occurred with bringing the shoulder above 90 degrees. Denies any recent trauma. Allergies: Coded Allergies: AMOXICILLIN (Verified Allergy, Unknown, 05/13/18) Patient History Last Menstrual Period: 1 week ago Reviewed Nursing Documentation: PMH: Agreed; PSxH: Agreed Nursing Documentation-PMH Past Medical History: No History, Except For Hx Asthma: Yes Review of Systems All Other Systems: negative except mentioned in HPI Physical Exam Vital Signs Date Time Temp Pulse Resp B/P (MAP) Pulse Ox O2 Delivery O2 Flow Rate FiO2 03/01/19 11:35 99.0 94 16 124/82 (96) 99 Room Air Sp02 EP Interpretation: reviewed, normal General Appearance: normal inspection, well appearing, no apparent distress, alert, GCS 15 Head: atraumatic ENT: normal ENT inspection, hearing grossly normal, normal voice Neck: normal inspection, full range of motion, supple, no bony tend Respiratory: normal inspection, lungs clear, normal breath sounds, no respiratory distress, no retraction, no wheezing Cardiovascular #1: normal peripheral pulses, regular rate, rhythm, no edema Gastrointestinal: normal inspection, normal bowel sounds, non tender, soft, no guarding, no hernia Genitourinary: no CVA tenderness Musculoskeletal: normal inspection, back normal, normal range of motion Neurologic: alert, motor strength/tone normal, informaticist III-XII nml as tested, EOM palsy, oriented x3, responsive, speech normal, normal inspection Psychiatric: normal inspection, judgement/insight normal, mood/affect normal Skin: no rash Medical Decision Making Diagnostic Impression: Primary Impression: Pneumonitis ER Course Patient presented for cough. Differential diagnosis include was not limited to bronchitis, pneumonia, influenza, asthma among others. Patient has a benign exam and does not appear to require any imaging or laboratory testing at this time. Patient appears to have a productive cough. She does have some symptoms consistent with a pneumonitis. Patient will be given prescription for oral antibiotics. She is advised to follow-up with her primary care physician for recheck. She is to return if worse. Last Vital Signs Date Time Temp Pulse Resp B/P (MAP) Pulse Ox O2 Delivery O2 Flow Rate FiO2 03/01/19 11:42 99.0 91 16 124/82 99 Room Air Status: improved Disposition: HOME, SELF-CARE Condition: Stable Art Syed MD Mar 01, 2019 12:27
[2019-03-01] MEDS ORDERED: ZITHROMAX250 MG ORAL ×3 (12:29→12:38)
[2019-03-01] MEDS ORDERED: IBUPROFEN600 MG ORAL ×3 (12:29→12:38)
[2019-03-01 12:35] VITALS: BP 117/78
== END 2019-03-01 12:36 | disposition home or self-care (01) ==
LOC: EMR 12:34
DX: J18.9 Pneumonia, unspecified organism (principal); Z88.0 Allergy status to penicillin
CPT/HCPCS: 99281

== ENCOUNTER 2019-08-28 00:53 | Emergency (ER) | payer SELFPAY ==
[~2019-08-28] VITALS: Ht 160 cm; Wt 63.5 kg
[~2019-08-28 00:53] MED LIST changes: +ALBUTEROL2.5 MG/3 M INH
[2019-08-28] MEDS ORDERED: Cephalexin 250mg/5ml Susp 100mL Bottle ORAL ONE (01:15)
[2019-08-28] MEDS ORDERED: Acetaminophen 500mg (ES) tab ORAL ONE (01:15)
--- NOTE | 2019-08-28 01:15 | Emergency Room Report ---
History of Present Illness General Chief Complaint: Sore Throat Source: Patient Present Illness HPI Patient presents with 1 day of sore throat and ear pain. Also she has a fever. She is not taking any medication she does not have any at home. Pain is rated 7/10. She denies any nausea, vomiting or diarrhea. There is no cough. She gets episodes of anxiety. States asthma is stable and no wheezing. 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 She does not believe she is at this time. Her last menstruation was August 07. No chills, chest pain, nausea, vomiting, diarrhea, dysuria, abdominal pain, shortness of breath, joint pain, rashes, depression, visual changes, dizziness, headache. Allergies: Coded Allergies: AMOXICILLIN (Verified Allergy, Unknown, 05/13/18) COVID-19 Screening Contact w/high risk pt: No Recent Travel to affected area: No Experienced COVID-19 symptoms?: No COVID-19 Testing performed SPANISH SPEAKING NANNY: No Patient History Past Medical History: see triage record Social History: Denies: smoking Social History Narrative works at [employer] Last Menstrual Period: 08/08/19 Now: No : 0 Para: 0 Reviewed Nursing Documentation: PMH: Agreed; PSxH: Agreed Nursing Documentation-PMH Past Medical History: No History, Except For Hx Asthma: Yes Review of Systems All Other Systems: negative except mentioned in HPI Physical Exam Vital Signs Date Time Temp Pulse Resp B/P (MAP) Pulse Ox O2 Delivery O2 Flow Rate FiO2 08/28/19 00:55 100.8 139 16 123/76 (92) 97 Room Air Sp02 EP Interpretation: reviewed, normal General Appearance: well appearing, no apparent distress, GCS 15 Head: normocephalic Eyes: bilateral eye normal inspection, bilateral eye PERRL ENT: moist mucus membranes, tonsillar exudate, other - L TM with fluid, no erythema R normal Respiratory: no respiratory distress Cardiovascular #1: tachycardia Gastrointestinal: normal inspection Musculoskeletal: gait/station normal Neurologic: alert, grossly normal Psychiatric: mood/affect normal Skin: no rash Medical Decision Making Diagnostic Impression: Primary Impression: Strep pharyngitis ER Course Patient presents with sore throat and ear pain with fever. Exam is consistent with strep pharyngitis with an otitis media on the left-hand side. She is tachycardic however not symptomatic at this time. Fever will be treated with Tylenol should be given or oral fluids and begun on cephalexin as she is allergic to amoxicillin. Patient improved with oral hydration and Tylenol. Pain is decreased and her heart rate is better. Discussed treatment plan with patient. Patient stable for outpatient observation and treatment. Last Vital Signs Date Time Temp Pulse Resp B/P (MAP) Pulse Ox O2 Delivery O2 Flow Rate FiO2 08/28/19 02:00 99.1 109 18 119/76 100 Room Air Status: improved Disposition: HOME, SELF-CARE Condition: Improved Scripts Chlorpheniramine Maleate (CHLOR-TRIMETON) 4 Mg Tablet 4 MG PO Q6HR PRN for ear congestion, #10 TAB Prov: James Laureano MD 08/28/19 Acetaminophen (Tylenol) 325 Mg Tablet 650 MG ORAL Q6H PRN for Prn Pain/Headache/Temp > 101, #20 TAB 0 Refills Prov: James Laureano MD 08/28/19 Cephalexin* (KEFLEX*) 500 Mg Capsule 500 MG ORAL EVERY 6 HOURS, #28 CAP Prov: James Laureano MD 08/28/19 Referrals: NON PHYSICIAN (PCP) James Laureano MD August 28, 2019 01:15
[2019-08-28] MEDS ORDERED: Cephalexin 500mg cap ONE (01:17)
[2019-08-28] MEDS ORDERED: CEPHALEXIN500 MG ORAL (01:20)
[2019-08-28] MEDS ORDERED: CHLOR-TRIMETON4 MG PO (01:20)
[2019-08-28] MEDS ORDERED: TYLENOL325 MG ORAL (01:20)
[2019-08-28] MEDS ORDERED: Cephalexin 500mg cap ORAL ONE (01:30)
[2019-08-28 01:52] VITALS: BP 119/76
[2019-08-28 02:00] VITALS: BP 119/76
== END 2019-08-28 02:00 | disposition home or self-care (01) ==
LOC: EMR 01:10
DX: J02.0 Streptococcal pharyngitis (principal); H66.92 Otitis media, unspecified, left ear; J45.909 Unspecified asthma, uncomplicated; Z88.1 Allergy status to other antibiotic agents
CPT/HCPCS: 99282

== ENCOUNTER 2019-11-29 15:13 | Emergency (ER) | payer MEDICAID, OTHER ==
[~2019-11-29] VITALS: Ht 160 cm; Wt 63.5 kg
[~2019-11-29 15:13] MED LIST changes: +CEPHALEXIN500 MG ORAL; +CHLOR-TRIMETON4 MG PO; +TYLENOL325 MG ORAL
--- NOTE | 2019-11-29 15:20 | NUR ---
ED Nurse Note: Pt walked in from home c/o right sided gum pain x 2 days. Pt reports "pus" coming out of her gums this morning. Pt is not able to see a dentist. Respirations even and unlabored on room air. Vitals stable as documented. A+Ox4, speaking in full sentences.
[2019-11-29 15:35] VITALS: BP 123/85
[2019-11-29] MEDS ORDERED: CLINDAMYCIN HC300 MG ORAL ×5 (15:40→18:45)
[2019-11-29 15:48] VITALS: BP 128/79
--- NOTE | 2019-11-29 15:48 | NUR ---
ED Nurse Note: Pt cleared by health care Provider for discharge. DC instructions/prescription were given and explained to pt and verbalized understanding of teachings. All medical devices such as ID band removed. Pt is AAO x4, ambulatory and left with all personal belongings.
--- NOTE | 2019-11-29 18:43 | Emergency Room Report ---
History of Present Illness General Chief Complaint: Toothache Source: Patient Present Illness HPI 29-year-old female presents the ED complaining of tooth pain. Notes pain in her right lower jaw for the last 3 days. Pain is throbbing, 8 out of 10, nonradiating. Denies fevers or chills. States that she had similar pain in her left jaw and she was given antibiotics which she states helped. No other aggravating relieving factors. Denies any other associated symptoms Allergies: Coded Allergies: AMOXICILLIN (Verified Allergy, Unknown, 05/13/18) COVID-19 Screening Contact w/high risk pt: No Recent Travel to affected area: No Experienced COVID-19 symptoms?: No COVID-19 Testing performed CHAIR CANER: No Patient History Past Medical History: asthma Past Surgical History: none Pertinent Family History: none Social History: Denies: smoking, alcohol use, drug use Now: No Immunizations: UTD Reviewed Nursing Documentation: PMH: Agreed; PSxH: Agreed Nursing Documentation-PMH Past Medical History: No History, Except For Hx Asthma: Yes Review of Systems All Other Systems: negative except mentioned in HPI Physical Exam Vital Signs Date Time Temp Pulse Resp B/P (MAP) Pulse Ox O2 Delivery O2 Flow Rate FiO2 11/29/19 15:18 99.0 92 16 118/81 (93) 97 Room Air Sp02 EP Interpretation: reviewed, normal General Appearance: no apparent distress, alert, GCS 15, non-toxic Head: normocephalic Eyes: bilateral eye normal inspection, bilateral eye PERRL ENT: other - erythema/swelling gum R lower jaw. no fluctuance or discharge Neck: normal inspection Respiratory: normal inspection Cardiovascular #1: normal inspection Gastrointestinal: normal inspection Rectal: deferred Genitourinary: no CVA tenderness Musculoskeletal: normal inspection Neurologic: alert, motor strength/tone normal, oriented x3, sensory intact, responsive, speech normal Psychiatric: normal inspection Skin: no rash Lymphatic: normal inspection Medical Decision Making Diagnostic Impression: Primary Impression: Toothache ER Course 29-year-old female presents ED complaining of tooth pain. Cracked tooth, dental abscess, cavity Patient placed on stretcher. After initial history, physical exam reveals a young female in mild distress. There is swelling and erythema to the gums in the right lower jaw. Likely impacted wisdom tooth. I discussed findings with the patient. Will discharge home with antibiotics. Will provide referral for dental clinic. Safe for discharge close outpatient follow-up Diagnosis- toothache Stable and discharged to home prescription for Clindamycin. Instructed to see dentist as a walk-in this week. Return to ED if symptoms recur or worse Last Vital Signs Date Time Temp Pulse Resp B/P (MAP) Pulse Ox O2 Delivery O2 Flow Rate FiO2 11/29/19 15:48 98.2 84 18 128/79 99 Room Air Status: improved Disposition: HOME, SELF-CARE Condition: Stable Scripts Clindamycin Hcl (CLINDAMYCIN HCL) 300 Mg Capsule 300 MG ORAL THREE TIMES A DAY, #21 CAP Prov: Zack Davis MD 11/29/19 Referrals: [facility](age 2-12) - Orthodontic Clinic - Hours: Sun,Sun,, 8:15am and 1pm (new patient screening), Tues. 1pm. Emergency clinic Sunday - Sunday 8:30am and 1pm, Tues. 1pm. *Call to check if clinic is open; No appointment necessary for the first visit ( new patient screening), Arrive 15-30 minutes early as it is first come, first serve. [facility] INFO: New Patient Screening: Sun- 8am-1pm Sun- 9am -5pm and Sun 2pm-5pm Patient Instructions: Dental Pain Zack Davis MD Nov 29, 2019 18:43
== END 2019-11-29 15:48 | disposition home or self-care (01) ==
LOC: EMR 15:35
DX: K08.89 Other specified disorders of teeth and supporting structures (principal); R68.84 Jaw pain; Z88.8 Allergy status to other drugs, medicaments and biological substances
CPT/HCPCS: 99282

== ENCOUNTER 2020-05-09 00:52 | Emergency (ER) | payer OTHER ==
[~2020-05-09] VITALS: Ht 160 cm; Wt 61.2 kg
[~2020-05-09 00:52] MED LIST changes: +CLINDAMYCIN HC300 MG ORAL
[2020-05-09 01:17] VITALS: BP 109/75
--- NOTE | 2020-05-09 01:19 | NUR ---
ED Nurse Note: Pt ambulated into ED, AAO x4. C/O left side jaw pain. Stable vital signs.
[2020-05-09] MEDS ORDERED: AMOXICILLIN500 MG ORAL (01:29)
--- NOTE | 2020-05-09 01:29 | Emergency Room Report ---
History of Present Illness General Chief Complaint: Pain Source: Patient Present Illness HPI This is a 29-year-old female with no past medical history. She presents with chief complaint of jaw pain. Onset for last week or so. Localized to the left lower jaw. She said the skin on the inside of her mouth is cut and irritated. Worse with opening it. Worse with eating and drinking. No fever chills. Similar symptom on the right lower jaw. It got better after taking amoxicillin. Allergies: Coded Allergies: No Known Allergies (Unverified , 05/09/20) COVID-19 Screening Contact w/high risk pt: No Recent Travel to affected area: No Experienced COVID-19 symptoms?: No COVID-19 Testing performed SPEECH LANGUAGE THERAPIST: No Patient History Past Medical History: see triage record, old chart reviewed Past Surgical History: none Pertinent Family History: none Social History: Denies: smoking Now: No Immunizations: other Reviewed Nursing Documentation: PMH: Agreed; PSxH: Agreed Nursing Documentation-PMH Hx Asthma: Yes Review of Systems Eye: Denies: eye pain, blurred vision ENT: Denies: ear pain, nose congestion, throat swelling Respiratory: Denies: cough, shortness of breath Cardiovascular: Denies: chest pain, palpitations Gastrointestinal: Denies: abdominal pain, diarrhea, nausea, vomiting Musculoskeletal: Denies: back pain, joint pain Skin: Denies: rash Neurological: Denies: headache, numbness Endocrine: Denies: increased thirst, increased urine Hematologic/Lymphatic: Denies: easy bruising All Other Systems: negative except mentioned in HPI Physical Exam Vital Signs Date Time Temp Pulse Resp B/P (MAP) Pulse Ox O2 Delivery O2 Flow Rate FiO2 05/09/20 01:09 98.1 88 18 109/75 (86) 98 Room Air Vitals normal Sp02 EP Interpretation: reviewed, normal General Appearance: well appearing, no apparent distress, alert Head: normocephalic, atraumatic Eyes: bilateral eye PERRL, bilateral eye EOMI ENT: hearing grossly normal, normal pharynx, other - Oropharynx: She has mucosal ulceration over her left lower wisdom tooth. Half the tooth is erupted and the other half is still cover with her skin and is ulcerated. No obvious abscess. 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 Probably from trauma of the tooth grinding against the skin. No evidence of abscess seen. We will put her on antibiotics. Recommend she see a dentist for possible tooth extraction. Last Vital Signs Date Time Temp Pulse Resp B/P (MAP) Pulse Ox O2 Delivery O2 Flow Rate FiO2 05/09/20 01:17 98.1 86 18 109/75 98 Room Air Status: unchanged Disposition: HOME, SELF-CARE Condition: Stable Scripts Amoxicillin* (AMOXIL*) 500 Mg Capsule 500 MG ORAL THREE TIMES A DAY, #21 CAP Prov: Layton Jean-Baptiste MD 05/09/20 Additional Instructions: Follow-up with dentist ADALID. If this continue, you may need to have your wisdom tooth extracted. Return if symptoms worsen. Layton Jean-Baptiste MD May 09, 2020 01:29
[2020-05-09 01:37] VITALS: BP 110/74
== END 2020-05-09 01:37 | disposition home or self-care (01) ==
LOC: EMR 01:35
DX: L98.491 Non-pressure chronic ulcer of skin of other sites limited to breakdown of skin (principal); J45.909 Unspecified asthma, uncomplicated
CPT/HCPCS: 99282